=== PATIENT | female | born 1950 | race Caucasian/White ===

== ENCOUNTER 2017-04-06 16:01 | Emergency (ER) | payer BC, OTHER ==
[2017-04-06 16:52] LABS: #Basophils 0.1 thou/uL (0.0-0.2); #Eosinphils 0.2 thou/uL (0.0-0.7); #Lymphocytes 2.5 thou/uL (1.20-3.40); #Monocytes 0.6 thou/uL (0.11-0.59); #Neutrophils 4.9 thou/uL (1.40-6.50); %Basophils 0.7 % (0.0-1.0); %Lymphocytes 30.1 % (21.0-51.0); %Monocytes 7.5 % (0.0-10.0); %Neutrophils 59.7 % (42.0-75.0); Hemoglobin 13.3 g/dL (12.0-16.0); Mean Corpuscular HGB CONC 32.6 g/dL (32.0-36.0); Mean Corpuscular Hemoglobin 30.5 pg (27.0-31.0); Mean Corpuscular Volume 93.7 fl (81.0-99.0); Mean Platelet Volume 8.7 fL (7.4-10.4); Platelet Count 228 thou/uL (130-400); RBC Distribution Width 11.6 % (11.5-14.5); Red Blood Cell (RBC) Count 4.36 mill/uL (4.20-5.40); White Blood Cell (WBC) Count 8.3 thou/uL (4.8-10.8)
[2017-04-06 16:55] LABS: ALT (SGPT) 16 U/L (8-55); AST (SGOT) 24 U/L (5-34); Albumin 4.1 g/dL (3.4-4.8); Alkaline Phosphatase 58 U/L (40-150); Anion Gap 16 mmol/L (10-20); BUN (Urea Nitrogen) 9 mg/dL (9.8-20.1); Bilirubin, Total 0.3 mg/dL (0.2-1.2); Calc. Creatinine Clearance 0 mL/min (70-130); Calcium 8.7 mg/dL (7.8-10.44); Carbon Dioxide 16 mmol/L (23-31); Chloride 99 mmol/L (98-107); Estimated GFR-MDRD 82; Glucose 82 mg/dL (80-115); Potassium 4.2 mmol/L (3.5-5.1); Protein, Total 7.1 g/dL (6.0-8.3); Sodium 127 mmol/L (136-145)
[2017-04-06] MEDS ORDERED: Sodium Chloride 0.9% 2,000 ML ONE (18:08)
[2017-04-06 18:11] LABS: Anion Gap 14 mmol/L (10-20); BUN (Urea Nitrogen) 8 mg/dL (9.8-20.1); Calc. Creatinine Clearance 0 mL/min (70-130); Calcium 7.5 mg/dL (7.8-10.44); Carbon Dioxide 16 mmol/L (23-31); Chloride 105 mmol/L (98-107); Estimated GFR-MDRD Greater than 90; Glucose 74 mg/dL (80-115); Potassium 3.6 mmol/L (3.5-5.1); Sodium 131 mmol/L (136-145)
[2017-04-06] MEDS ORDERED: Ondansetron HCl/PF 4 MG/2 ML Vial ONE (18:47)
== END 2017-04-06 18:54 | disposition home or self-care (01) ==
LOC: NAV ERS 16:01
DX: E87.1 Hypo-osmolality and hyponatremia (principal); E87.2 Acidosis; R19.7 Diarrhea, unspecified; E78.5 Hyperlipidemia, unspecified; G43.909 Migraine, unspecified, not intractable, without status migrainosus; I10 Essential (primary) hypertension; Z87.891 Personal history of nicotine dependence; Z79.899 Other long term (current) drug therapy
CPT/HCPCS: 80053; 85025; 96360; 96361; J2405; J7050

== ENCOUNTER 2017-04-07 08:53 | Outpatient (CLI) | payer OTHER ==
--- NOTE | 2017-04-07 11:36 | CT ---
CT ABDOMEN AND PELVIS WITH IV AND ORAL CONTRAST: Date: 04/07/17 HISTORY: Right abdominal pain. FINDINGS: The lung bases are clear. The gallbladder is surgically absent. Tiny cysts are present within the hep atic parenchyma. Liver is unremarkable. The spleen, kidneys, adrenal glands, and pancreas have a norm al CT appearance. No enlarged lymph nodes or free fluid are evident. There is calcification in the ar terial structures. The appendix is not inflamed. Urinary bladder is unremarkable. Uterus is not visib le and is presumed surgically absent. There are degenerative changes of the lower lumbar spine. IMPRESSION: 1. Atherosclerosis. 2. Status post cholecystectomy. 3. No acute abnormalities are demonstrated. POS: [facility]
[2017-04-07 11:40] LABS: Anion Gap 15 mmol/L (10-20); BUN (Urea Nitrogen) 7 mg/dL (9.8-20.1); Bilirubin Negative (Negative); Blood, Urine Trace (Negative); Calc. Creatinine Clearance 0 mL/min (70-130); Calcium 8.6 mg/dL (7.8-10.44); Carbon Dioxide 21 mmol/L (23-31); Chloride 105 mmol/L (98-107); Clarity Clear (Clear); Estimated GFR-MDRD 82; Glucose 84 mg/dL (80-115); Glucose, Urine (Dipstick) Negative (Negative); Leukocyte Negative (Negative); Nitrite Negative (Negative); Potassium 4.1 mmol/L (3.5-5.1); Protein, Urine (Dipstick) Negative (Neg-Trace); Sodium 137 mmol/L (136-145); Urobilinogen 0.2 mg/dL (0.2-1.0)
[2017-04-07 11:46] LABS: #Eosinphils 0.1 thou/uL (0.0-0.7); #Lymphocytes 1.8 thou/uL (1.20-3.40); #Monocytes 0.9 thou/uL (0.11-0.59); #Neutrophils 7.1 thou/uL (1.40-6.50); %Basophils 0.4 % (0.0-1.0); %Eosinophils 1.3 % (0.0-10.0); %Lymphocytes 18.2 % (21.0-51.0); %Monocytes 8.9 % (0.0-10.0); %Neutrophils 71.2 % (42.0-75.0); Mean Corpuscular HGB CONC 31.8 g/dL (32.0-36.0); Mean Corpuscular Hemoglobin 30.1 pg (27.0-31.0); Mean Corpuscular Volume 94.4 fl (81.0-99.0); Mean Platelet Volume 8.2 fL (7.4-10.4); Platelet Count 225 thou/uL (130-400); RBC Distribution Width 12.2 % (11.5-14.5); Red Blood Cell (RBC) Count 4.31 mill/uL (4.20-5.40)
[2017-04-07 12:07] LABS: Bacteria/HPF Rare-Few HPF (None Seen); Other Microscopic Description NO; RBC/HPF 0-3 HPF (0-3); Squamous Epithelial 0-3 HPF (0-3); WBC/HPF 0-3 HPF (0-3)
== END 2017-04-07 08:54 | disposition home or self-care (01) ==
LOC: NAV CT 08:53
PROVIDERS: ATTEND Internal Medicine
DX: R10.11 Right upper quadrant pain (principal); R52 Pain, unspecified; I70.90 Unspecified atherosclerosis; Z90.49 Acquired absence of other specified parts of digestive tract
CPT/HCPCS: 74177; 80048; 81003; 81015; 85025; 87086

== ENCOUNTER 2018-10-16 18:32 | Emergency (ER) | payer BC, OTHER ==
[2018-10-16] MEDS ORDERED: Ondansetron ODT 4 MG TAB ONE (18:48)
[2018-10-16] MEDS ORDERED: Acetaminophen 500 MG TAB ONE (18:48)
[2018-10-16] MEDS ORDERED: Ketorolac Tromethamine 60 MG/2 ML VIAL ONE (19:19)
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
== END 2018-10-16 19:38 | disposition home or self-care (01) ==
LOC: NAV ERS 18:32
DX: S13.4XXA Sprain of ligaments of cervical spine, initial encounter (principal); I10 Essential (primary) hypertension; E78.5 Hyperlipidemia, unspecified; Z79.899 Other long term (current) drug therapy; G43.909 Migraine, unspecified, not intractable, without status migrainosus; Z87.891 Personal history of nicotine dependence; V49.9XXA Car occupant (driver) (passenger) injured in unspecified traffic accident, initial encounter
CPT/HCPCS: 70450; 72125; 96372; J1885; Q0162

== ENCOUNTER 2018-10-29 12:13 | Emergency (ER) | payer OTHER ==
[2018-10-29 12:48] LABS: #Eosinphils 0.2 thou/uL (0.0-0.7); #Lymphocytes 3.3 thou/uL (1.20-3.40); #Monocytes 0.7 thou/uL (0.11-0.59); #Neutrophils 5.8 thou/uL (1.40-6.50); %Basophils 0.5 % (0.0-1.0); %Eosinophils 2.2 % (0.0-10.0); %Lymphocytes 32.6 % (21.0-51.0); %Neutrophils 57.7 % (42.0-75.0); Hemoglobin 11.9 g/dL (12.0-16.0); Mean Corpuscular HGB CONC 31.8 g/dL (32.0-36.0); Mean Corpuscular Hemoglobin 28.8 pg (27.0-31.0); Mean Corpuscular Volume 90.7 fL (78.0-98.0); Mean Platelet Volume 6.7 fL (7.4-10.4); Platelet Count 344 thou/uL (130-400); RBC Distribution Width 12.6 % (11.5-14.5); Red Blood Cell (RBC) Count 4.12 mill/uL (4.20-5.40); White Blood Cell (WBC) Count 10.1 thou/uL (4.8-10.8)
--- NOTE | 2018-10-29 12:53 | RAD ---
RADIOGRAPH CHEST 2 VIEWS: DATE: 10/29/2018 HISTORY: 68-year-old female with chest pain FINDINGS: There is no airspace density, pulmonary edema, pleural effusion, pneumothorax, or cardiomegaly. IMPRESSION: No acute cardiopulmonary findings.
[2018-10-29 13:04] LABS: ALT (SGPT) 20 U/L (8-55); AST (SGOT) 20 U/L (5-34); Albumin 4.3 g/dL (3.4-4.8); Alkaline Phosphatase 61 U/L (40-150); Anion Gap 16 mmol/L (10-20); BUN (Urea Nitrogen) 12 mg/dL (9.8-20.1); Bilirubin, Total 0.2 mg/dL (0.2-1.2); CRP (Inflammatory) 0.55 mg/dL (= or < 0.5); Calc. Creatinine Clearance 0 mL/min (70-130); Calcium 9.3 mg/dL (7.8-10.44); Carbon Dioxide 23 mmol/L (23-31); Chloride 96 mmol/L (98-107); Estimated GFR-MDRD 75; Globulin 2.8 g/dL (2.4-3.5); Glucose 95 mg/dL (80-115); Potassium 4.2 mmol/L (3.5-5.1); Protein, Total 7.1 g/dL (6.0-8.3); Sodium 131 mmol/L (136-145)
[2018-10-29] MEDS ORDERED: Ketorolac Tromethamine 30 MG/ML VIAL ONE (13:20)
== END 2018-10-29 13:32 | disposition home or self-care (01) ==
LOC: NAV ERS 12:13
DX: R07.89 Other chest pain (principal); I10 Essential (primary) hypertension; E78.5 Hyperlipidemia, unspecified; G43.909 Migraine, unspecified, not intractable, without status migrainosus; Z87.891 Personal history of nicotine dependence; Z79.899 Other long term (current) drug therapy
CPT/HCPCS: 71046; 80053; 84484; 85025; 85379; 86140; 93005; 96374; J1885

== ENCOUNTER → 2018-11-10 | Day surgery (SDC) | payer OTHER ==
[~2018-11-10] MED LIST: Ibuprofen 800 MG TAB ONE; Ondansetron PF 4 MG/2 ML Vial ONE
[2018-11-10 07:23] LABS: Eosinophils 2 % (0-10); Hemoglobin 10.9 g/dL (12.0-16.0); Lymphocytes 10 % (21-51); MDiff Complete? YES; Mean Corpuscular HGB CONC 32.5 g/dL (32.0-36.0); Mean Corpuscular Hemoglobin 28.8 pg (27.0-31.0); Mean Corpuscular Volume 88.5 fL (78.0-98.0); Mean Platelet Volume 6.9 fL (7.4-10.4); Monocytes 5 % (0-10); Neutrophil 83 % (42-75); Platelet Count 252 thou/uL (130-400); Platelet Morphology Comment Appears Adequate; RBC Distribution Width 11.6 % (11.5-14.5); RBC Morphology Normal; Red Blood Cell (RBC) Count 3.81 mill/uL (4.20-5.40); White Blood Cell (WBC) Count 15.2 thou/uL (4.8-10.8)
[2018-11-10 07:34] LABS: ALT (SGPT) 13 U/L (8-55); AST (SGOT) 15 U/L (5-34); Albumin 3.9 g/dL (3.4-4.8); Alkaline Phosphatase 57 U/L (40-150); Anion Gap 21 mmol/L (10-20); BUN (Urea Nitrogen) 15 mg/dL (9.8-20.1); Bilirubin, Total 0.3 mg/dL (0.2-1.2); Calc. Creatinine Clearance 0 mL/min (70-130); Calcium 9.1 mg/dL (7.8-10.44); Carbon Dioxide 20 mmol/L (23-31); Chloride 95 mmol/L (98-107); Estimated GFR-MDRD 58; Globulin 3.2 g/dL (2.4-3.5); Glucose 92 mg/dL (80-115); Potassium 3.3 mmol/L (3.5-5.1); Protein, Total 7.1 g/dL (6.0-8.3); Sodium 133 mmol/L (136-145)
== END ==
LOC: NAV ER/OP 06:49 → EDSTATUS 11:41
PROVIDERS: ATTEND Emergency Medicine
DX: R11.2 Nausea with vomiting, unspecified (principal); R19.7 Diarrhea, unspecified; R50.9 Fever, unspecified; Z88.5 Allergy status to narcotic agent
CPT/HCPCS: 36415; 80053; 85025; 87040; 87077; 87149; 87186; J2405

== ENCOUNTER 2018-11-12 14:21 | Outpatient (CLI) | payer OTHER ==
[~2018-11-12 14:21] MED LIST changes: +Iopamidol 370 76% 100 ML VIAL ONE; -Ondansetron ODT 4 MG TAB ONE; -Ondansetron PF 4 MG/2 ML Vial ONE; -Potassium Chloride 20 MEQ TAB ONE; -Sodium Chloride 0.9% 2,000 ML ONE; -cefTRIAXone\\ROCEPHIN 1 GM VIAL ONE
--- NOTE | 2018-11-12 15:22 | CT ---
CT ABDOMEN AND PELVIS WITH IV CONTRAST: HISTORY: Abdominal pain and fever with positive blood culture for E. coli. COMPARISON: 04/07/2017. FINDINGS: Tiny bilateral pleural effusions are present. A tiny low-density lesion is seen in the posteromedial aspect of the right lobe of the liver which is stable. The patient is post cholecystectomy. The sp cecilia, pancreas, adrenal glands, and left kidney are normal. There is a 19 mm heterogeneous focal les ion in the superior pole of the right kidney. No hydroureteral nephrosis is seen on either side. No free air or lymphadenopathy is noted. There is a small amount of free fluid in the pelvis. The small bowel loops are not abnormally dilated. There is colonic diverticulosis. Appendix is norm al. There are vascular calcifications without evidence of aneurysmal dilatation of the abdominal aor ta. There are degenerative changes in the spine. IMPRESSION: 1. Tiny pleural effusions. 2. Colonic diverticulosis. 3. A small amount of free fluid in the pelvis. 4. Focal lesion in the superior pole of the right kidney. Infection versus neoplasm. A followup ex am after a course of antibiotics is recommended. POS: [facility]
--- NOTE | 2018-11-12 15:50 | ULT ---
Bilateral renal ultrasound CLINICAL INDICATION: Lesion superior pole right kidney on CT exam. COMPARISON: CT abdomen on 11/12/2018 FINDINGS: Right kidney: There is a hypoechoic lesion seen within the superior pole right kidney measuring 1.9 c m. This cannot be characterized as a simple cyst based on this exam. This does correspond to CT scan abnormality.The right kidney measures 10.9 cm in length. Left kidney: There is no evidence of a renal mass, renal calculus, or hydronephrosis. The left kidney measures 11 cm in length. Urinary bladder: Not imaged on this exam. IMPRESSION: Hypoechoic cystic lesion superior pole right kidney which cannot be accurately characterized as a sim ple cyst on this exam. Follow-up CT scan of the abdomen following renal mass protocol with three-phase imaging is recommended for further characterization.
== END 2018-11-12 14:22 | disposition home or self-care (01) ==
LOC: NAV CT 14:21
PROVIDERS: ATTEND Internal Medicine
DX: K57.92 Diverticulitis of intestine, part unspecified, without perforation or abscess without bleeding (principal); B96.20 Unspecified Escherichia coli [E. coli] as the cause of diseases classified elsewhere; N28.89 Other specified disorders of kidney and ureter; J90 Pleural effusion, not elsewhere classified; K57.30 Diverticulosis of large intestine without perforation or abscess without bleeding; R93.421 Abnormal radiologic findings on diagnostic imaging of right kidney
CPT/HCPCS: 74177; 76770; Q9967

== ENCOUNTER → 2018-11-12 | Day surgery (SDC) | payer OTHER ==
[~2018-11-12] MED LIST changes: -Ibuprofen 800 MG TAB ONE; +Ondansetron ODT 4 MG TAB ONE; +Potassium Chloride 20 MEQ TAB ONE; +Sodium Chloride 0.9% 2,000 ML ONE; +cefTRIAXone\\ROCEPHIN 1 GM VIAL ONE
[2018-11-12 09:23] LABS: Anion Gap 22 mmol/L (10-20); BUN (Urea Nitrogen) 10 mg/dL (9.8-20.1); Calc. Creatinine Clearance 0 mL/min (70-130); Calcium 9.5 mg/dL (7.8-10.44); Carbon Dioxide 21 mmol/L (23-31); Chloride 97 mmol/L (98-107); Estimated GFR-MDRD 70; Glucose 76 mg/dL (80-115); Potassium 3.1 mmol/L (3.5-5.1); Sodium 137 mmol/L (136-145)
[2018-11-12 09:50] LABS: Hemoglobin 11.2 g/dL (12.0-16.0); Mean Corpuscular Hemoglobin 28.4 pg (27.0-31.0); Mean Corpuscular Volume 88.6 fL (78.0-98.0); Mean Platelet Volume 7.1 fL (7.4-10.4); Platelet Count 283 thou/uL (130-400); RBC Distribution Width 12.2 % (11.5-14.5); Red Blood Cell (RBC) Count 3.95 mill/uL (4.20-5.40)
[2018-11-12 09:57] LABS: Band 4 % (5-11); Eosinophils 1 % (0-10); Lymphocytes 27 % (21-51); MDiff Complete? YES; Monocytes 5 % (0-10); Neutrophil 62 % (42-75); Reactive Lymphocytes 1 % (0-10)
[2018-11-12 09:59] LABS: Platelet Morphology Comment Appears Adequate
[2018-11-12 10:54] LABS: Bilirubin Negative (Negative); Blood, Urine Small (Negative); Clarity Clear (Clear); Glucose, Urine (Dipstick) Negative (Negative); Leukocyte Moderate (Negative); Nitrite Negative (Negative); Protein, Urine (Dipstick) 30 mg/dL (Neg-Trace); Specific Gravity, Urine 1.015 (1.005-1.030); Urobilinogen 0.2 mg/dL (0.2-1.0); pH, Urine 5.5 (5.0-9.0)
[2018-11-12 15:53] LABS: Bacteria/HPF 1+ HPF (None Seen); RBC/HPF 0-3 HPF (0-3); Squamous Epithelial 0-3 HPF (0-3)
== END ==
LOC: NAV ER/OP 08:09
PROVIDERS: ATTEND Internal Medicine
DX: R78.81 Bacteremia (principal); B96.20 Unspecified Escherichia coli [E. coli] as the cause of diseases classified elsewhere; E87.6 Hypokalemia; R19.7 Diarrhea, unspecified
CPT/HCPCS: 80048; 81003; 81015; 83630; 85025; 87045; 87046; 87086; 87449; 87899; J0696; J2405; J7050; Q0162

== ENCOUNTER → 2018-11-23 | Day surgery (SDC) | payer OTHER ==
[~2018-11-23] MED LIST changes: -Iopamidol 370 76% 100 ML VIAL ONE; +Sodium Chloride 0.9% 2,000 ML ONE
[2018-11-23 11:26] LABS: #Basophils 0.1 thou/uL (0.0-0.2); #Eosinphils 0.2 thou/uL (0.0-0.7); #Lymphocytes 3.1 thou/uL (1.20-3.40); #Monocytes 0.5 thou/uL (0.11-0.59); #Neutrophils 8.1 thou/uL (1.40-6.50); %Basophils 0.4 % (0.0-1.0); %Eosinophils 1.3 % (0.0-10.0); %Lymphocytes 25.8 % (21.0-51.0); %Monocytes 4.3 % (0.0-10.0); %Neutrophils 68.2 % (42.0-75.0); Hemoglobin 11.1 g/dL (12.0-16.0); Mean Corpuscular HGB CONC 30.7 g/dL (32.0-36.0); Mean Corpuscular Hemoglobin 28.1 pg (27.0-31.0); Mean Corpuscular Volume 91.3 fL (78.0-98.0); Mean Platelet Volume 6.2 fL (7.4-10.4); Platelet Count 471 thou/uL (130-400); RBC Distribution Width 13.1 % (11.5-14.5); Red Blood Cell (RBC) Count 3.97 mill/uL (4.20-5.40); White Blood Cell (WBC) Count 11.9 thou/uL (4.8-10.8)
[2018-11-23 11:44] LABS: ALT (SGPT) 12 U/L (8-55); AST (SGOT) 13 U/L (5-34); Albumin 4.1 g/dL (3.4-4.8); Alkaline Phosphatase 58 U/L (40-150); Anion Gap 17 mmol/L (10-20); BUN (Urea Nitrogen) 17 mg/dL (9.8-20.1); Bilirubin, Total 0.2 mg/dL (0.2-1.2); CRP (Inflammatory) 0.51 mg/dL (= or < 0.5); Calc. Creatinine Clearance 0 mL/min (70-130); Calcium 9.9 mg/dL (7.8-10.44); Carbon Dioxide 29 mmol/L (23-31); Chloride 99 mmol/L (98-107); Estimated GFR-MDRD 55; Globulin 2.7 g/dL (2.4-3.5); Glucose 90 mg/dL (80-115); Potassium 4.7 mmol/L (3.5-5.1); Protein, Total 6.8 g/dL (6.0-8.3); Sodium 140 mmol/L (136-145)
== END ==
LOC: NAV ER/OP 10:35
PROVIDERS: ATTEND Internal Medicine
DX: I95.9 Hypotension, unspecified (principal); N12 Tubulo-interstitial nephritis, not specified as acute or chronic
CPT/HCPCS: 36415; 80053; 85025; 85652; 86140; 87040; 96360; J7050

== ENCOUNTER 2019-02-01 18:17 | Outpatient (CLI) | payer OTHER ==
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
== END 2019-02-01 18:18 | disposition home or self-care (01) ==
LOC: NAV CT 18:17
PROVIDERS: ATTEND Physical Medicine & Rehabilitation
DX: M54.6 Pain in thoracic spine (principal)
CPT/HCPCS: 71250

== ENCOUNTER 2020-10-04 19:27 | Outpatient (CLI) | payer OTHER | END 2020-10-04 19:28 | disposition home or self-care (01) | LOC: NAV RAD 19:27 | PROVIDERS: ATTEND Internal Medicine | DX: M79.672 Pain in left foot (principal); S92.355A Nondisplaced fracture of fifth metatarsal bone, left foot, initial encounter for closed fracture ==

== ENCOUNTER 2020-11-12 19:43 | Outpatient (CLI) | payer OTHER | END 2020-11-12 19:44 | disposition home or self-care (01) | LOC: NAV RAD 19:43 | PROVIDERS: ATTEND Internal Medicine | DX: S92.352D Displaced fracture of fifth metatarsal bone, left foot, subsequent encounter for fracture with routine healing (principal) ==

== ENCOUNTER 2020-12-11 15:31 | Outpatient (CLI) | payer OTHER | END 2020-12-11 15:32 | disposition home or self-care (01) | LOC: NAV RAD 15:31 | PROVIDERS: ATTEND Internal Medicine | DX: S92.355G Nondisplaced fracture of fifth metatarsal bone, left foot, subsequent encounter for fracture with delayed healing (principal) ==

== ENCOUNTER 2022-08-17 12:24 | Emergency (ER) | payer BC, MEDICARE ==
[2022-08-17 12:56] LABS: #Lymphocytes 1.9 thou/uL (1.20-3.40); #Monocytes 0.7 thou/uL (0.11-0.59); %Basophils 0.2 % (0.0-1.0); %Eosinophils 0.1 % (0.0-10.0); %Lymphocytes 16.1 % (21.0-51.0); %Monocytes 5.6 % (0.0-10.0); %Neutrophils 78.1 % (42.0-75.0); Hemoglobin 13.1 g/dL (12.0-16.0); Mean Corpuscular Hemoglobin 29.9 pg (27.0-31.0); Mean Corpuscular Volume 85.5 fl (78.0-98.0); Mean Platelet Volume 6.3 fL (7.4-10.4); Platelet Count 333 10x3/uL (130-400); RBC Distribution Width 9.9 % (11.5-14.5); Red Blood Cell (RBC) Count 4.39 mill/uL (4.20-5.40); White Blood Cell (WBC) Count 11.5 10x3/uL (4.8-10.8)
[2022-08-17] MEDS ORDERED: Ondansetron PF 4 MG/2 ML Vial ONE (12:58)
[2022-08-17] MEDS ORDERED: Sodium Chloride 0.9% 1,000 ML ONE ×2 (12:58→14:43)
[2022-08-17 13:18] LABS: ALT (SGPT) 21 U/L (8-55); AST (SGOT) 20 U/L (5-34); Albumin 4.8 g/dL (3.4-4.8); Alkaline Phosphatase 64 U/L (40-110); Anion Gap 20 mmol/L (10-20); BUN (Urea Nitrogen) 13 mg/dL (9.8-20.1); Bilirubin, Total 0.5 mg/dL (0.2-1.2); CK (CPK) 132 U/L (29-168); Calc. Creatinine Clearance 0 mL/min (70-130); Calcium 9.5 mg/dL (7.8-10.44); Carbon Dioxide 22 mmol/L (23-31); Chloride 77 mmol/L (98-107); Estimated GFR 70; Globulin 2.9 g/dL (2.4-3.5); Glucose 105 mg/dL (83-110); Lipase 19 U/L (8-78); Magnesium 1.7 mg/dL (1.6-2.6); Potassium 3.6 mmol/L (3.5-5.1); Protein, Total 7.7 g/dL (5.8-8.1)
[2022-08-17 13:23] LABS: Sodium 115 mmol/L (136-145)
== END 2022-08-17 15:41 | disposition short-term general hospital (02) ==
LOC: NAV ERS 12:24
DX: E87.1 Hypo-osmolality and hyponatremia (principal); E86.0 Dehydration; K52.9 Noninfective gastroenteritis and colitis, unspecified; I10 Essential (primary) hypertension; Z79.899 Other long term (current) drug therapy
CPT/HCPCS: 80053; 82533; 82550; 83605; 83690; 83735; 84443; 84484; 85025; 87804; 93005; 94760; 96361; 96374; J2405; J7050